=== PATIENT | male | born 1945 | race Caucasian/White ===

== ENCOUNTER → 2016-12-17 | Outpatient (CLI) | payer MEDICARE, OTHER ==
[2014-12-20 17:41] VITALS: BP 175/102
[~2016-12-17] MED LIST: AGGRENOX 25 MG-1 CER PO; CENTRUM SILVER1 TA1 PO; CEPHALEXIN500 M1 PO; CHOLESTEROL MAN1 TAB PO; FLAX SEED OIL1000 MG PO; LISINOPRIL20 MG PO; LISINOPRIL40 MG PO; NORCO 325 MG-51 TAB PO; OMEPRAZOLE20 M1 PO; RANITIDINE150 MG PO; SILDENAFIL PO; SIMVASTATIN80 MG PO
== END ==
LOC: RAD 09:48
DX: R05 Cough (principal)

== ENCOUNTER → 2018-01-31 | Outpatient (CLI) | payer OTHER ==
[~2018-01-31] VITALS: Ht 170.2 cm; Wt 95.0 kg
[~2018-01-31] MED LIST changes: +CIALIS20 MG PO; +GOOD NEIGHBOR P20 M1 PO; +HYDROCHLOROTH12.5 M1 PO; -LISINOPRIL40 MG PO; +NIZORAL CREAM15 GM TP
[2018-01-31 10:01] LABS: EOS # 0.1 (0.04-0.40); EOS % 1.5 % (0.0-4.0); HEMATOCRIT 43.9 % (42.0-52.0); HEMOGLOBIN 14.9 g/dL (13.5-18.0); LYMPH# 2.4 (1.50-4.00); MEAN CELL VOLUME 86 fl (78-100); MEAN CORPUSCULAR HEMOGLOBIN 29 pg (27-31); MEAN CORPUSCULAR HGB CONC 34 g/dL (33-37); MEAN PLATELET VOLUME 10.6 fl (7.4-10.4); MONO # 0.8 (0.20-0.80); NEU # 5.1 (1.40-6.50); PLATELET COUNT 241 K/mm3 (130-400); RED BLOOD COUNT 5.11 M/mm3 (4.20-5.60); RED CELL DISTRIBUTION WIDTH 13.1 % (11.5-14.5); WHITE BLOOD COUNT 8.5 K/mm3 (4.8-10.8)
[2018-01-31 10:08] LABS: ALBUMIN 4.4 g/dL (3.5-5.0); BUN/CREATININE RATIO 22.7 (6.0-26.0); CALCIUM 9.6 mg/dL (8.4-10.2); POTASSIUM 4.3 mmol/L (3.6-5.0); TOTAL BILIRUBIN 0.9 mg/dL (0.2-1.3); TOTAL PROTEIN 7.6 g/dL (6.3-8.2)
[2018-01-31 10:10] VITALS: BP 130/84
== END ==
LOC: AMSURD 09:44
PROVIDERS: Nurse Practitioner Family
DX: R07.9 Chest pain, unspecified (principal)

== ENCOUNTER 2021-02-07 13:32 | Emergency (ER) | payer MEDICARE, OTHER ==
[~2021-02-07] VITALS: Ht 170.2 cm; Wt 85.5 kg
[2021-02-07] MEDS ORDERED: AUGMENTIN 875-1 EAC1 PO (16:26)
[2021-02-07 16:47] VITALS: BP 158/83
== END 2021-02-07 16:54 | disposition home or self-care (01) ==
LOC: ED 13:32
DX: S61.451A Open bite of right hand, initial encounter (principal); I10 Essential (primary) hypertension; Z79.899 Other long term (current) drug therapy; W54.0XXA Bitten by dog, initial encounter
CPT/HCPCS: 90715; J0696

== ENCOUNTER → 2023-03-02 | Outpatient (CLI) | payer MEDICARE, OTHER ==
[~2023-03-02] MED LIST changes: +AUGMENTIN 875-1 EAC1 PO
== END ==
LOC: RAD 08:30
DX: M19.012 Primary osteoarthritis, left shoulder (principal)

== ENCOUNTER 2023-07-14 07:59 | Outpatient (RCR) | payer OTHER | END 2023-07-20 | disposition home or self-care (01) | LOC: PT | DX: M25.512 Pain in left shoulder (principal); Z96.612 Presence of left artificial shoulder joint ==

== ENCOUNTER 2023-07-21 07:52 | Outpatient (RCR) | payer OTHER | END 2023-08-18 | disposition home or self-care (01) | LOC: PT | DX: M25.512 Pain in left shoulder (principal); Z96.612 Presence of left artificial shoulder joint ==

== ENCOUNTER 2023-08-19 08:00 | Outpatient (RCR) | payer OTHER | END 2023-09-01 17:00 | disposition home or self-care (01) | LOC: PT 08:00 | DX: M25.512 Pain in left shoulder (principal); Z96.612 Presence of left artificial shoulder joint ==